=== PATIENT | male | born 1975 | race Caucasian/White ===

== ENCOUNTER → 2024-03-25 | Outpatient (CLI) | payer OTHER ==
[2024-03-25 15:44] VITALS: BP 146/83; PULSE 108; RESP 16; TEMP 98.5
--- NOTE | 2024-03-25 16:42 | P.SLEEP ---
History of Present Illness H&P Date: 03/25/24 Chief Complaint: BEATRIS This is a 49-year-old male patient with known history of obstructive sleep apnea. The patient is diagnosed with established more than 10 years ago by an outside sleep center and the patient has been utilizing a ResMed 10 CPAP unit which is set at a pressure of 19 cm of water. He has also used a fullface mask, small size Mirage Quatro. The patient has been extremely compliant with CPAP therapy over the years. His machine is dysfunctional. It is unexpectedly being turned off in the middle of the night and the motor life is exceeded its lifespan. Based on that, the patient came to me for further advice and he was hoping to up date his CPAP machine. I checked the compliance data on his machine and the patient has been utilizing the machine every night. His compliancy has been in the order of 100% and the patient is using the machine more than 4 hours 100% of the time. His leaks are minimal at 7 L/min and his AHI is down to 0.8. He has no hypersomnia and sleepiness as long as he utilizes his machine he has no snoring while on the CPAP machine. Since he has gotten the machine 10 years ago, the patient has rarely skipped any sleep with CPAP. The patient is going to bed at around 10:30 PM and is waking up 5:30 AM in the morning. He works in a welding shop. No anxiety. No panic attacks. No heartburn. No congestion heart failure. No atrial fibrillation. 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 No 70 motor vehicle accidents because of feeling drowsy or sleepy. He is obese and his weight has been maintained unchanged over the past 5 to 10 years. His current body mass index is 42.9. He has no other complaints otherwise for now. Review of Systems Constitutional: Reports daytime sleepiness, Reports fatigue Eyes: denies as per HPI, denies blurred vision, denies bulging eye, denies decreased vision, denies diplopia, denies discharge, denies dry eye, denies irritation, denies itching, denies pain, denies photophobia, denies loss of peripheral vision, denies loss of vision, denies tunnel vision/blind spots Ears: deny: decreased hearing, ear discharge, earache, tinnitus Ears, nose, mouth and throat: Reports as per HPI Breasts: absent: as per HPI, gynecomastia Cardiovascular: Reports as per HPI Respiratory: Reports sleep apnea, Reports snoring Gastrointestinal: Reports as per HPI Genitourinary: Reports as per HPI Musculoskeletal: Reports as per HPI Musculoskeletal: absent: ankle pain, ankle stiffness, ankle swelling, as per HPI, elbow pain, elbow stiffness, elbow swelling, foot pain, foot stiffness, foot swelling, hand pain, hand stiffness, hand swelling, hip pain, hip stiffness, hip swelling, knee pain, knee stiffness, knee swelling, shoulder pain, shoulder stiffness, shoulder swelling, wrist pain, wrist stiffness, wrist swelling Integumentary: Reports as per HPI Neurological: Reports as per HPI Psychiatric: Reports as per HPI Endocrine: Reports as per HPI Hematologic/Lymphatic: Reports as per HPI Allergic/Immunologic: Reports as per HPI Past Medical History Past Medical History: Asthma, Hypertension, Sleep Apnea/CPAP/BIPAP Additional Past Medical History / Comment(s): pineal gland cyst History of Any Multi-Drug Resistant Organisms: None Reported Past Surgical History: No Surgical Hx Reported Past Anesthesia/Blood Transfusion Reactions: No Reported Reaction Past Psychological History: No Psychological Hx Reported Smoking Status: Never smoker Past Alcohol Use History: None Reported Past Drug Use History: None Reported - Past Family History Father Family Medical History: Coronary Artery Disease (CAD), Hyperlipidemia, Hypertension Mother Family Medical History: Thyroid Disorder Additional Family Medical History / Comment(s): sinus headaches Medications and Allergies Home Medications Medication Instructions Recorded Confirmed Type Atenolol 50 mg PO BID 12/01/13 12/03/13 History Enalapril [Vasotec] 10 mg PO DAILY 12/01/13 12/03/13 History hydroCHLOROthiazide [Hydrodiuril] 50 mg PO DAILY 12/01/13 12/03/13 History traMADol HCl [Ultram] 50 mg PO Q6H PRN #20 tab 12/04/13 Rx Fexofenadine/Pseudoephedrine See Rx Instructions .ROUTE .COMPLEX 03/25/24 03/25/24 History [Bee-D 12 Hour Tablet] lisinopriL [Zestril] 20 mg PO DAILY 03/25/24 03/25/24 History Allergies Allergy/AdvReac Type Severity Reaction Status Date / Time No Known Allergies Allergy Verified 12/03/13 22:22 Physical Exam Vitals: Vital Signs Temp Pulse Resp BP Pulse Ox 03/25/24 15:26 98.5 F 108 H 16 146/83 96 Intake and Output 03/25/24 03/25/24 03/25/24 06:59 14:59 22:59 Other: Weight 120.656 kg The patient appeared well nourished and normally developed. Vital signs as documented. The patient is morbidly obese with a BMI of 42.9 Head exam is unremarkable. No scleral icterus or corneal arcus noted. Neck is without jugular venous distension, thyromegaly, or carotid bruits. Roblero tid upstrokes are brisk bilaterally. Patient has a Mallampati class IV with significant crowding of the posterior pharynx Lungs are clear to auscultation and percussion. Cardiac exam reveals the PMI to be normally sized and situated. Rhythm is regular. First and second heart sounds normal. No murmurs, rubs or gallops. Abdominal exam reveals normal bowel sounds, no masses, no organomegaly and no aortic enlargement. Extremities are nonedematous and both femoral and pedal pulses are normal. Examination of the skin revealed no evidence of significant rashes, suspicious appearing nevi or other concerning lesions. Neurologically, the patient is awake and alert and the patient does not have any focal neurological deficit. Cranial nerves are essentially intact. Assessment and Plan Plan: Obstructive sleep apnea, e diagnosed established more than 10 years ago and the patient has been successfully treated with a CPAP pressure of 19 cm of water over the past 10 years. I do not have access to his original polysomnography. Nevertheless, the patient has been successfully treated and the patient has been extremely compliant. His machine needs to be updated. 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 Morbid obesity with a BMI of 42.9 Hypertension Chronic hypersomnia, recovered while being on CPAP therapy. Plan Maintain good sleep hygiene measures Maintain regular sleep schedule Continues in CPAP therapy at the same level of pressure. I am going to order a newer generation ResMed 11 for this patient and this will be set at a pressure of 90 cm of water and will utilize the same mask interface and the patient will be given a Mirage Quatro small size fullface mask as the current mask interface has been extremely successful in maintaining successful treatment. The patient will need to see me back in follow-up in 30 to 90 days after obtaining a new CPAP unit for a compliancy check Will utilize distilled water and he was educated to do so Continue antihypertensive medications Tight control of cardiovascular risk factors Will follow Sleep Note - Sleep Data ESS Total: 19 - Sleep Note Sleep Note: Temperature: 98.5 F Pulse Rate: 108 Respiratory Rate: 16 Blood Pressure: 146/83 SpO2: 96 Height: 5 ft 6 in Weight: 120.656 kg BMI: Neck Circumference: 19
== END ==
LOC: 3 N SLEEP 15:04
PROVIDERS: ATTEND Internal Medicine Critical Care Medicine
DX: G47.33 Obstructive sleep apnea (adult) (pediatric) (principal); I10 Essential (primary) hypertension; E66.01 Morbid (severe) obesity due to excess calories; G47.10 Hypersomnia, unspecified; Z68.41 Body mass index [BMI] 40.0-44.9, adult; Z99.89 Dependence on other enabling machines and devices; Z79.899 Other long term (current) drug therapy
CPT/HCPCS: 99202